=== PATIENT | male | born 1990 | race Two or more races ===

== ENCOUNTER 2020-01-30 15:13 | Emergency (ER) | payer SELFPAY ==
[~2020-01-30] VITALS: Ht 162.6 cm; Wt 72.6 kg
--- NOTE | 2020-01-30 15:26 | NUR ---
ED Nurse Note: pt presents to ED with a L index finger lac. pt reports that he was cutting vegetables [employer] and cut his finger. finger is actively bleeding, pt given gauze and told to apply pressure to area
[2020-01-30 15:28] VITALS: BP 148/98
--- NOTE | 2020-01-30 16:07 | Emergency Room Report ---
History of Present Illness General Chief Complaint: Laceration Source: Patient Present Illness HPI 29-year-old male presents for evaluation. States he cut his left index finger today while cutting with a knife. Tetanus is up-to-date. Notes a lot of bleeding. Is applying pressure. Denies pain. Denies any other injuries. No other aggravating relieving factors. Denies any other associated symptoms Allergies: Coded Allergies: No Known Allergies (Unverified , 01/30/20) COVID-19 Screening Contact w/high risk pt: No Experienced COVID-19 symptoms?: No COVID-19 Testing performed HOSPICE ART THERAPIST: No Patient History Past Medical History: none Past Surgical History: none Pertinent Family History: none Social History: Denies: smoking, alcohol use, drug use Immunizations: UTD Reviewed Nursing Documentation: PMH: Agreed; PSxH: Agreed Nursing Documentation-PMH Past Medical History: No Stated History Review of Systems All Other Systems: negative except mentioned in HPI Physical Exam Vital Signs Date Time Temp Pulse Resp B/P (MAP) Pulse Ox O2 Delivery O2 Flow Rate FiO2 01/30/20 15:19 98.4 110 20 148/98 (115) 97 Room Air Sp02 EP Interpretation: reviewed, normal General Appearance: no apparent distress, alert, GCS 15, non-toxic Head: normocephalic, atraumatic Eyes: bilateral eye normal inspection, bilateral eye PERRL ENT: hearing grossly normal, normal pharynx, no angioedema, normal voice Neck: full range of motion, supple/symm/no masses Respiratory: chest non-tender, lungs clear, normal breath sounds, speaking full sentences Cardiovascular #1: regular rate, rhythm, no edema Cardiovascular #2: 2+ carotid (R), 2+ carotid (L), 2+ radial (R), 2+ radial (L) , 2+ dorsalis pedis (R), 2+ dorsalis pedis (L) Gastrointestinal: normal bowel sounds, non tender, soft, non-distended, no guarding, no rebound Rectal: deferred Genitourinary: normal inspection, no CVA tenderness Musculoskeletal: back normal, normal range of motion, gait/station normal, non- tender Neurologic: alert, motor strength/tone normal, oriented x3, sensory intact, responsive, speech normal Psychiatric: judgement/insight normal, memory normal, mood/affect normal, no suicidal/homicidal ideation Reflexes: 3+ bicep (R), 3+ bicep (L), 3+ tricep (R), 3+ tricep (L), 3+ knee (R) , 3+ knee (L) Skin: other - skin avulsion tip of L index finger. bleeding noted Lymphatic: no adenopathy Medical Decision Making Diagnostic Impression: Primary Impression: Avulsion of skin of finger Qualified Codes: S61.209A - Unspecified open wound of unspecified finger without damage to nail, initial encounter ER Course Hospital Course 29 yo M presents to ED c/o bleeding L index finger Clinical course Patient placed on stretcher. After initial history and physical wound irrigated. there is an avulsion of the distal aspect L index finger. bleeding noted Tourniquet applied. Wound irrigated. Xeroform and pressure dressing applied. I discussed findings with patient. Patient instructed to keep the dressing on for 1 week then remove it. Does not require sutures. Safe for discharge and close outpatient follow-up. I will provide referrals Diagnosis - avulsion of skin finger Stable and discharged to home. wound Care instructions given. Followup with PMD in 7-10 days for suture removal. Return to ED if any signs of infection develop Last Vital Signs Date Time Temp Pulse Resp B/P (MAP) Pulse Ox O2 Delivery O2 Flow Rate FiO2 01/30/20 15:28 98.4 99 20 148/98 97 Room Air Status: improved Disposition: HOME, SELF-CARE Condition: Stable Referrals: NOT CHOSEN IPA/,REFERRING (PCP) Twan Shaver MD Jan 30, 2020 16:07
[2020-01-30 16:15] VITALS: BP 148/98
--- NOTE | 2020-01-30 16:15 | NUR ---
ER DISCHARGE NOTE: Patient is cleared to be discharged per ERMD, pt is aox4, on room air, with stable vital signs. finger lac was irrigated, and dressed per ERMD orders. pt given instruction to maintain pressure to control bleeding. pt was given dc and prescription instructions, pt was able to verbalize understanding, pt id band removed without complications. pt is able to ambulate with steady gait. pt took all belongings.
== END 2020-01-30 16:15 | disposition home or self-care (01) ==
LOC: EMR 15:54
DX: S61.201A Unspecified open wound of left index finger without damage to nail, initial encounter (principal); W26.0XXA Contact with knife, initial encounter; Y92.9 Unspecified place or not applicable
CPT/HCPCS: 99282